=== PATIENT | male | born 1930 | race Caucasian/White ===

== ENCOUNTER 2016-10-25 05:40 | Day surgery (SDC) | payer MEDICARE ==
[~2016-10-25 05:40] MED LIST: ALEVE220 M4 PO; ASPIR 8181 M1 PO; ASPIRIN81 M1 PO; CALCIUM 600 +1 EA13 PO; CYCLOBENZAPRINE5 M1 PO; FLOMAX0.4 M1 PO; FOLIC ACID0.8 M1 PO; FOSAMAX70 M1 PO; GLUCOSAMINE 1,1 EACH PO; LEVOTHYROXINE50 MC3 PO; METHOTREXATE2.5 M1 PO; MOBIC15 M2 PO; NORCO 5-325 TA1 EACH PO; PERCOCET 5-3251 EACH PO; PLAQUENIL200 M1 PO; PRILOSEC20 M1 PO; SAW PALMETTO450 M1 PO; ULTRAM50 M1 PO; VITAMIN C500 M3 PO
[2017-04-30] MEDS ORDERED: FLONASE ALLERG9.9 ML (18:42)
[2017-05-01] MEDS ORDERED: PRENATAL-U CAPS1 CAP PO (00:34)
[2017-05-02] MEDS ORDERED: CEFUROXIME250 M1 PO (12:31)
== END 2016-10-27 18:20 ==
LOC: SRG 05:40 → SHSB 05:44 → ORW 07:40 → PACU 08:55 → 5WD 09:45
PROC: 0VT08ZZ Resection of Prostate, Via Natural or Artificial Opening Endoscopic (ICD-10-PCS; principal; 2016-10-25)
DX: N40.1 Benign prostatic hyperplasia with lower urinary tract symptoms (principal); N13.8 Other obstructive and reflux uropathy; R33.8 Other retention of urine; N32.89 Other specified disorders of bladder; M19.90 Unspecified osteoarthritis, unspecified site; M06.9 Rheumatoid arthritis, unspecified; E03.9 Hypothyroidism, unspecified; H91.90 Unspecified hearing loss, unspecified ear; N18.2 Chronic kidney disease, stage 2 (mild); E78.5 Hyperlipidemia, unspecified; Z79.899 Other long term (current) drug therapy; Z88.0 Allergy status to penicillin; Z87.891 Personal history of nicotine dependence; Z90.49 Acquired absence of other specified parts of digestive tract; Z97.4 Presence of external hearing-aid; Z98.890 Other specified postprocedural states
CPT/HCPCS: J1956